=== PATIENT | male | born 1985 | race African-American/Black ===

== ENCOUNTER 2017-09-21 10:50 | Emergency (ER) | payer OTHER ==
[~2017-09-21] VITALS: Ht 190.5 cm; Wt 113.4 kg
[2017-09-21 11:08] VITALS: BP 165/105
--- NOTE | 2017-09-21 11:11 | ER.PDOC ---
General Chief Complaint: Male Stated Complaint: MALE / DISCHARGE , DYSURIA Time seen by MD: 11:11 Source: patient History of Present Illness Timing/Duration: yesterday Severity/Quality: mild Location: unknown Associated Symptoms: Dysuria, Urgency, Penile discharge Sexual History: Unprotected intercourse Allergies: Coded Allergies: No Known Allergies (Unverified , 09/21/17) Past Medical History Medical History: no pertinent history Surgical History: no surgical history Social History Smoking: non-smoker Drug Use: none Review of Systems All Other Systems: Reviewed and Negative Physical Exam General Appearance: No Apparent Distress, WD/WN EENT: eyes nml inspection, nml ENT inspection, pharynx nml Neck: nml inspection, non-tender Cardiovascular/Respiratory: Regular Rate, Rhythm, No M/R/G, Normal Peripheral Pulses, No JVD, Normal Breath Sounds, No Respiratory Distress Abdomen: Normal Bowel Sounds, Non Tender, Soft, No Organomegaly, No Pulsatile Mass Male Genitals: Urethral Discharge Back: nml inspection Extremities: Normal Range of Motion, Non-Tender, Normal Inspection, No Pedal Edema, No Calf Tenderness, Normal Capillary Refill 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
[2017-09-21 11:14] LABS: BILIRUBIN,URINE NEGATIVE (NEGATIVE); UROBILINOGEN,URINE NORMAL (NEGATIVE)
[2017-09-21 11:19] LABS: APPEARANCE,URINE CLEAR (CLEAR); UA COLOR YELLOW (YELLOW)
[2017-09-21] MEDS ORDERED: ZITHROMAX ONE (11:25)
[2017-09-21] MEDS ORDERED: ROCEPHIN ONE (11:25)
[2017-09-21] MEDS ORDERED: ZITHROMAX PO ONE (11:30)
[2017-09-21] MEDS ORDERED: ROCEPHIN IM SCH (11:30)
[2017-09-21 11:40] VITALS: BP 154/90
[2017-09-21 11:47] VITALS: BP 154/90
== END 2017-09-21 11:47 | disposition home or self-care (01) ==
LOC: ER 10:50
DX: N34.2 Other urethritis (principal)
CPT/HCPCS: 36415; 81002; 87491; 87591; 96372; 99284; J0696; Q0144

== ENCOUNTER 2017-09-28 20:19 | Emergency (ER) | payer OTHER ==
[~2017-09-28] VITALS: Ht 193 cm; Wt 117.9 kg
[2017-09-28 20:26] VITALS: BP 165/114
--- NOTE | 2017-09-28 20:27 | PCM.EKG ---
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
[2017-09-28] MEDS ORDERED: ASPIRIN ONE (20:29)
[2017-09-28 20:32] VITALS: BP 173/112
--- NOTE | 2017-09-28 20:32 | NUR ---
NITRO-SPRAY #1: B/P 173/112, NITRO-SPRAY #1 GIVEN.
[2017-09-28 20:37] VITALS: BP 164/92
[2017-09-28 20:37] LABS: BASOPHIL % 0.4 % (0.0-0.2); EOSINOPHIL # 0.2 10^3/uL (0.0-0.2); EOSINOPHIL % 2.4 % (0.0-5.0); HEMOGLOBIN 14.2 g/dL (13.9-16.3); LYMPHOCYTES # 2.9 10^3/uL (1.0-4.8); LYMPHOCYTES % 40.8 % (24.0-44.0); MEAN CELL HGB 27.6 pg (26-34); MEAN CELL HGB CONCENTRATION 32.9 g/dL (33-37); MEAN PLATELET VOLUME 9.4 fL (7.8-11.0); MONOCYTES # 0.6 10^3/uL (0.3-0.8); MONOCYTES % 7.7 % (5.0-12.0); NEUTROPHIL # 3.5 10^3/uL (1.8-7.7); NEUTROPHILS % 48.7 % (41.0-85.0); RED CELL DISTRIBUTION WIDTH 13.9 % (11.5-14.5); WHITE BLOOD CELL 7.2 10^3/uL (4.5-11.0)
--- NOTE | 2017-09-28 20:37 | NUR ---
B/P: B?P 164/92. PATIENTS STATES HIS HEADACHE AND CHEST PAIN IS COMPLETELY GONE AND THAT HE IS READY TO GO HOME. ADVISED PATIENT THAT HE NEEDED TO WAIT FOR RESULTS OF LAB AND DOCTOR AND HE VOCED UNDERSTANDING.
--- NOTE | 2017-09-28 20:42 | DIREP ---
PROCEDURE:CHEST 1 VIEW COMPARISON:None. INDICATIONS:Chest pain FINDINGS: LUNGS/PLEURA:No significant pulmonary parenchymal abnormalities. No effusions. VASCULATURE:Normal. Unremarkable pulmonary vasculature. CARDIAC:Normal. No cardiac silhouette abnormality or cardiomegaly. MEDIASTINUM:Normal. No visible mass or adenopathy. BONES:Normal. No fracture or visible bony lesion. OTHER:Negative. CONCLUSION:Normal examination. Dictated by: Woodrow Gorman M.D. on 09/28/2017 at 08:41 PM
[2017-09-28 20:46] VITALS: BP 157/86
--- NOTE | 2017-09-28 20:46 | NUR ---
B/P: B/P 157/86. PATIENT DENIES PAIN OR DISCOMFORT.
--- NOTE | 2017-09-28 21:01 | ER.PDOC ---
General Chief Complaint: Chest Pain-Cardiac Nature Stated Complaint: CHEST PAIN Time seen by MD: 21:00 Source: patient Exam Limitations: no limitations History of Present Illness Initial Comments Left chest pain for 2 days Severity/Quality: moderate, dull Radiation: no radiation Activities at Onset: rest Prior CP/Workup: No Prior Chest Pain Nitro Today/Relief: 0.4 mg x 1, Complete Relief Aspirin Today: 325 mg x 1 Associated Symptoms: denies symptoms Allergies: Coded Allergies: No Known Allergies (Unverified , 09/21/17) Past Medical History Medical History: no pertinent history Surgical History: no surgical history Social History Smoking: non-smoker Alcohol Use: none Drug Use: none Constitutional: no symptoms reported EENTM: no symptoms reported Respiratory: no symptoms reported Cardiovascular: see HPI Gastrointestinal: no symptoms reported Genitourinary: no symptoms reported All Other Systems: Reviewed and Negative Physical Exam General Appearance: No Apparent Distress, WD/WN HEENT: PERRL/EOMI, Normal ENT Inspection, TMs Normal, Pharynx Normal Neck: Non-Tender, Full Range of Motion, Supple, Normal Inspection Respiratory: chest non-tender, lungs clear, normal breath sounds, no respiratory distress, no accessory muscle use Cardiovascular: Normal Peripheral Pulses, Regular Rate, Rhythm, No Edema, No Gallop, No JVD, No Murmur Gastrointestinal: Normal Bowel Sounds, No Organomegaly, No Pulsatile Mass, Non Tender, Soft Extremities: Normal Range of Motion, Non-Tender, Normal Inspection, No Pedal Edema, No Calf Tenderness, Normal Capillary Refill 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, No Motor/Sensory Deficits, Alert, Normal Mood/Affect, Oriented x 3 Skin: Normal Color, Warm/Dry Lymphatic: No Adenopathy Results/Orders Results/Orders Laboratory Tests Test 09/28/17 20:30 White Blood Count 7.2 10^3/uL (4.5-11.0) Red Blood Count 5.14 10^6/uL (4.50-5.90) Hemoglobin 14.2 g/dL (13.9-16.3) Hematocrit 43.2 % (37.0-53.0) Mean Corpuscular Volume 84.0 fL (78-100) Mean Corpuscular Hemoglobin 27.6 pg (26-34) Mean Corpuscular Hemoglobin Concent 32.9 g/dL (33-37) Red Cell Distribution Width 13.9 % (11.5-14.5) Platelet Count 301 10^3/uL (150-400) Mean Platelet Volume 9.4 fL (7.8-11.0) Neutrophils (%) (Auto) 48.7 % (41.0-85.0) Lymphocytes (%) (Auto) 40.8 % (24.0-44.0) Monocytes (%) (Auto) 7.7 % (5.0-12.0) Neutrophils # (Auto) 3.5 10^3/uL (1.8-7.7) Lymphocytes # (Auto) 2.9 10^3/uL (1.0-4.8) Monocytes # (Auto) 0.6 10^3/uL (0.3-0.8) Absolute Immature Granulocyte (auto 0 10^3 u/L (0-2) Eosinophils % 2.4 % (0.0-5.0) Basophils % 0.4 % (0.0-0.2) Basophils # 0.0 10^3/uL (0.0-0.1) Eosinophil Count 0.2 10^3/uL (0.0-0.2) Prothrombin Time 9.3 SEC (9.8-11.9) Prothrombin Time INR (Non-Therap) 0.9 Activated Partial Thromboplast Time 25.5 SEC (24.67-30.72) D-Dimer 0.33 mg/L (0.19-0.49) Sodium Level Pending Potassium Level Pending Chloride Level Pending Carbon Dioxide Level Pending Anion Gap Pending Blood Urea Nitrogen Pending Creatinine Pending BUN/Creatinine Ratio Pending Glucose Level Pending Calcium Level Pending Total Bilirubin Pending Aspartate Amino Transf (AST/SGOT) Pending Alanine Aminotransferase (ALT/SGPT) Pending Alkaline Phosphatase Pending Total Creatine Kinase Pending Creatine Kinase MB Pending Troponin I 0.11 ng/mL (0.00-0.05) Pro-B-Type Natriuretic Peptide Pending Total Protein Pending Albumin Pending Globulin Pending Percent Immature Gran (Cell Imm) 0.00 % (0.00-0.50) Progress Progress Discussed patient's labs with him. Told him his troponin is elevated and he needed to be admitted and he refused. He understands that leaving against medical advice may lead to worsening condition, cardiac arrest and . H agreed to me that he fully understands that. He tells me that he feels better. EKG/XRAY/CT/US EKG: NSR XRAY: chest (Normal) Departure Time of Disposition: 21:50 Disposition: 07 AGAINST MEDICAL ADVICE Impression: Primary Impression: Chest pain Additional Impressions: Elevated troponin Elevated blood pressure reading Condition: Against Medical Advice Referrals: PCP,UNKNOWN (PCP) PRIMARY CARE PROVIDER Duration or Time Spent with Pa: 90 mins Problem Qualifiers Primary Impression: Chest pain Chest pain type: unspecified Qualified Codes: R07.9 - Chest pain, unspecified JAME SANTIAGO MD Sep 28, 2017 21:01
[2017-09-28 21:02] LABS: CALCIUM 8.8 mg/dL (8.4-10.5); CARBON DIOXIDE 23.2 mmol/L (20.0-32)
[2017-09-28 21:37] VITALS: BP 143/95
--- NOTE | 2017-09-28 21:37 | NUR ---
B/P 143/95. DENIES PAIN OR DISCOMFORT.
--- NOTE | 2017-09-28 21:59 | NUR ---
JENNIFER: SPOKE WITH PATIENT ABOUT ELEVATED TROPONIN, AND THE DANGERS OF LEAVING WITHOUT CARE. HE VOICED UNDERSTANDING. STATED HE WAS FROM [place] AND HIS CREW WAS LEAVING IN THE MORNING TO GO BACK HOME AND HE WOULD SEE DOCTOR IN [place]. DENIED PAIN OR DISCOMFORT AT THIS TIME
--- NOTE | 2017-09-28 21:59 | NUR ---
AMA: PATIENT REQUESTING TO LEAVE. AGAIN GAVE INSTRUCTION ON IMPORTANCE OF NOT HAVING MEDICAL CARE. VOICED UNDERSTANDING AND LEFT WITH FRIEND. DR. SANTIAGO NOTIFIED OF AMA.
[2017-09-28 22:32] VITALS: BP 143/95
== END 2017-09-28 21:59 | disposition left against medical advice (07) ==
LOC: ER 20:19
DX: R07.9 Chest pain, unspecified (principal); R03.0 Elevated blood-pressure reading, without diagnosis of hypertension; R74.8 Abnormal levels of other serum enzymes
CPT/HCPCS: 36415; 71045; 80053; 82550; 82553; 83880; 84484; 85025; 85379; 85610; 85730; 93005; 99285